=== PATIENT | female | born 1980 | race Caucasian/White ===

== ENCOUNTER 2018-12-30 19:02 | Emergency (ER) | payer OTHER ==
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
--- NOTE | 2018-12-30 20:34 | RAD REPORT ---
EXAM DESCRIPTION: RAD - Shoulder Left 2 View - 12/30/2018 8:27 pm CLINICAL HISTORY: PAIN COMPARISON: <Comparisons> FINDINGS: No fracture or dislocation seen. Prominent inferior acromial spur noted.
[2018-12-30] MEDS ORDERED: NA CHLORIDE 0.9% 100 ML IV ONE (21:09)
== END 2018-12-30 20:39 | disposition home or self-care (01) ==
LOC: ER 19:02
DX: M25.512 Pain in left shoulder (principal); V59.49XA Driver of pick-up truck or van injured in collision with other motor vehicles in traffic accident, initial encounter
CPT/HCPCS: 99283